=== PATIENT | female | born 1990 | race Two or more races ===

== ENCOUNTER 2021-11-10 04:38 | Emergency (ER) | payer SELFPAY ==
[~2021-11-10] VITALS: Ht 157.5 cm; Wt 78.0 kg
--- NOTE | 2021-11-10 04:55 | NUR ---
pt states issue with urinating and back pain, per triage notes.
--- NOTE | 2021-11-10 05:00 | NUR ---
pt provided urine sample, ambulated to room 4a.
--- NOTE | 2021-11-10 05:03 | NUR ---
Dr. Lima at bedside for MSE.
[2021-11-10 05:26] LABS: *URINE HCG, QUAL NEGATIVE (NEGATIVE)
[2021-11-10 05:27] LABS: *BILIRUBIN,URIN NEGATIVE (NEGATIVE); *BLOOD, URINE 3+ (NEGATIVE); *CLARITY,URINE CLEAR (CLEAR); *COLOR,URINE YELLOW (YELLOW); *KETONES,URINE NEGATIVE (NEGATIVE); *UROBILINOGEN,URINE 0.2 E.U./dl (NORMAL); LEUKOCYTE ESTERASE ,URINE NEGATIVE (NEGATIVE); NITRITE, URINE NEGATIVE (NEGATIVE); PH,URINE 5.5 (5.0-8.0); UGLUCOSE NEGATIVE (NEGATIVE)
[2021-11-10 05:29] LABS: HEMATOCRIT 41.5 % (31.2-41.9); MEAN CORPUSCULAR HEMOGLOBIN 29.1 uug (24.7-32.8); MEAN CORPUSCULAR VOLUME 87.5 fL (75.5-95.3); PLATELET COUNT (AUTO) 339 K/uL (179-408)
[2021-11-10 05:31] LABS: CARBON DIOXIDE 26 mmol/L (21-32); CHLORIDE 104 mmol/L (98-107); CREATININE 0.8 mg/dL (0.6-1.3); GLUCOSE 106 mg/dL (74-106); POTASSIUM 3.6 mmol/L (3.5-5.1); UREA NITROGEN, BLOOD 13 mg/dL (7-18)
[2021-11-10 05:37] LABS: ALANINE AMINOTRANSFERASE 22 U/L (14-59); ALKALINE PHOSPHATASE 65 U/L (50-136); ASPARTATE AMINOTRANSFERASE < 5 U/L (15-37); BILIRUBIN,DIRECT < 0.1 mg/dL (0.0-0.2); BILIRUBIN,TOTAL 0.2 mg/dL (0.2-1.0); TOTAL PROTEIN, SERUM 6.9 g/dL (6.4-8.2)
--- NOTE | 2021-11-10 06:02 | NUR ---
pt taken to cat scan by geotechnical engineer.
--- NOTE | 2021-11-10 06:09 | NUR ---
pt returned from cat scan.
--- NOTE | 2021-11-10 06:19 | NUR ---
Dr. Lima in speaking with the pt.
--- NOTE | 2021-11-10 06:44 | NUR ---
Patient discharged to home in stable condition. Written and verbal after care instructions given. Patient verbalizes understanding of instructions. Stressed follow up or return to ER for worsening s/s.
[2021-11-10 06:45] VITALS: BP 120/78
[2021-11-10 09:57] LABS: MUCUS,URINE MANY /LPF (0-FEW)
[2021-11-10 09:58] LABS: BACTERIA,URINE FEW /HPF (NONE SEEN); SQUAMOUS EPITHELIAL CELL,UR FEW /HPF (NONE SEEN); WBC,URINE 0-3 /HPF (0-3)
[2021-11-10 09:59] LABS: RBC,URINE 20-50 /HPF (0-3)
== END 2021-11-10 06:46 | disposition home or self-care (01) ==
LOC: ER 04:38
DX: R10.32 Left lower quadrant pain (principal); R10.33 Periumbilical pain; D72.828 Other elevated white blood cell count; Z98.84 Bariatric surgery status; Z87.442 Personal history of urinary calculi; Z88.2 Allergy status to sulfonamides; R73.03 Prediabetes
CPT/HCPCS: 36415; 83605; 84703; 85025; A4663